=== PATIENT | male | born 1960 | race Caucasian/White ===

== ENCOUNTER 2018-06-22 15:00 | Emergency (ER) | payer OTHER ==
[~2018-06-22] VITALS: Ht 167.6 cm; Wt 93.0 kg
[2018-06-22 15:17] VITALS: Ht 167.6 cm; Wt 93.0 kg
[2018-06-22 16:20] VITALS: BP 140/90
== END 2018-06-22 16:20 | disposition home or self-care (01) ==
LOC: ED 15:00
DX: S61.511A Laceration without foreign body of right wrist, initial encounter (principal); W27.8XXA Contact with other nonpowered hand tool, initial encounter; Y93.89 Activity, other specified; Y92.89 Other specified places as the place of occurrence of the external cause; Y99.8 Other external cause status
CPT/HCPCS: 90715